=== PATIENT | female | born 1965 | race Two or more races ===

== ENCOUNTER 2018-02-14 13:36 | Emergency (ER) | payer SELFPAY ==
[2018-02-14 13:53] VITALS: BP 154/92
--- NOTE | 2018-02-14 14:07 | UC ---
Laceration HPI - HPI Summary HPI Summary: Pt was at work earlier today and was moving some boxes. She fell - landing on her knees and hitting her head, she thinks against the metal cart edge. Sustained a laceration above her right eye along the lateral aspect of right eyebrow. Bleeding stopped with direct pressure. Unsure when last tetanus was. No LOC. - History Of Current Complaint Chief Complaint: UCLaceration Stated Complaint: HEAD LACERATION Time Seen by Provider: 02/14/18 14:07 Hx Obtained From: Patient Laceration Location: Face Mechanism Of Injury: Sharp Trauma Onset/Duration: Sudden Onset Severity: Moderate Pain Intensity: 5 Pain Scale Used: 0-10 Numeric - Allergies/Home Medications Allergies/Adverse Reactions: Allergies Allergy/AdvReac Type Severity Reaction Status Date / Time No Known Allergies Allergy Verified 02/14/18 13:53 Home Medications: Home Medications Lisinopril 5 mg PO DAILY 02/14/18 [History Confirmed 02/14/18] Sertraline* [Zoloft*] 50 mg PO DAILY 02/14/18 [History Confirmed 02/14/18] PMH/Surg Hx/FS Hx/Imm Hx Previously Healthy: Yes Endocrine History: Hypothyroidism, Dyslipidemia Psychological History: Depression - Surgical History Surgical History: Yes Surgery Procedure, Year, and Place: ABLASION - Family History Known Family History: Positive: None - Social History Occupation: Employed Full-time Lives: With Family Alcohol Use: Weekly Substance Use Type: None Smoking Status (MU): Never Smoked Tobacco Review of Systems Constitutional: Negative Skin: Other - Laceration above right eye. Eyes: Negative Respiratory: Negative Cardiovascular: Negative Neurovascular: Negative Musculoskeletal: Other: - b/l knee pain Neurological: Negative Psychological: Negative All Other Systems Reviewed And Are Negative: Yes Physical Exam - Summary Physical Exam Summary: GENERAL: NAD. WDWN. No pain distress. SKIN: 1.0cm linear superficial laceration on lateral aspect of right eyebrow. Very well approximated. No FB or active bleeding. HEENT: Head: AT/NC Eyes: EOM intact. Conjunctiva clear without inflammation or discharge. Ears: Hearing grossly normal. TMs intact, no bulging, erythema, or edema. NECK: Supple. Nontender. No lymphadenopathy. CHEST: CTAB. No r/r/w. No accessory muscle use. Breathing comfortably and in no distress. CV: RRR. Without m/r/g. MSK: Mild TTP overlying right patella. Strength 5/5. No edema or obvious bony deformities. FROM b/l LEs. Mild ecchymosis overlying right patella <5mm. NEURO: Alert. Sensations intact and symmetric B/L LEs PSYCH: Age appropriate behavior. Triage Information Reviewed: Yes Vital Signs: Initial Vital Signs Temp 98.1 F 02/14/18 13:49 Pulse 77 02/14/18 13:49 Resp 18 02/14/18 13:49 BP 154/92 02/14/18 13:49 Pulse Ox 98 02/14/18 13:49 Laceration Repair - Laceration Repair 1 Description: Linear Laceration Size After Repair: Length (cm) - 1.0 Modified For Repair: No Cleansing Completed Via Routine Prep: Yes Closure Material: Skin Adhesive Laceration Course/Dx - Course/Dx Course Of Treatment: Dermabond applied to laceration after wound irrigation. Mild contusion to right knee. - Differential Dx - Laceration/Wound Provider Diagnoses: Laceration 1.0cm right eyebrow. Right knee contusion Discharge - Sign-Out/Discharge Documenting (check all that apply): Discharge - Discharge Plan Condition: Stable Disposition: HOME Patient Education Materials: Laceration (ED), Skin Adhesive Care (ED) Referrals: July Borden MD [Primary Care Provider] - Additional Instructions: If you develop a fever, shortness of breath, chest pain, new or worsening symptoms - please call your PCP or go to the ED. Your blood pressure was high at todays visit. Please see your primary provider within 4 weeks for recheck and re-evaluation. 1) Keep the bandage clean, dry, and intact for the rest of the day. May remove tonight. 2) The glue will come off on its own of the next few days - Billing Disposition and Condition Condition: STABLE Disposition: HOME
[2018-02-14] MEDS ORDERED: Lidocaine 2% PF * 5 ML VIAL INJ ONE (14:08)
[2018-02-14] MEDS ORDERED: Tetan/Diph/Pertus SYR(Tdap)* 0.5 ML SYR(BOOSTRIX) use SYR IM ONE (14:24)
== END 2018-02-14 14:38 | disposition home or self-care (01) ==
LOC: UCEAST 13:36
DX: S01.111A Laceration without foreign body of right eyelid and periocular area, initial encounter (principal); S80.01XA Contusion of right knee, initial encounter; W18.30XA Fall on same level, unspecified, initial encounter; Y93.89 Activity, other specified; Y92.9 Unspecified place or not applicable; Y99.0 Civilian activity done for income or pay; Z23 Encounter for immunization; E03.9 Hypothyroidism, unspecified; E78.5 Hyperlipidemia, unspecified; F32.9 Major depressive disorder, single episode, unspecified
CPT/HCPCS: 12011; 90471; 90715; 99211; G0463